=== PATIENT | female | born 1960 | race Caucasian/White ===

== ENCOUNTER 2016-08-01 13:47 | Inpatient (IN) | payer OTHER ==
[~2016-08-01] VITALS: Ht 157.5 cm; Wt 130.2 kg
[2016-08-01] MEDS ORDERED: LEVOFLOXACIN 500 MG/100 ML IV 100 ML IV ONE (14:05)
[2016-08-01] MEDS ORDERED: ALBUTEROL/IPRATROPIUM 3MG-0.5MG/3ML (DUONEB) NEB VIAL INH ONE (14:05)
[2016-08-01] MEDS ORDERED: methylPREDNISolone 125 MG (Solu-MEDROL) VIAL IV ONE (14:05)
[2016-08-01 14:20] LABS: BASOPHILS % (AUTO) 0 % (0-2); EOSINOPHILS % (AUTO) 0 % (0-4); LYMPHOCYTES # (AUTO) 0.6 X10^3; MEAN CORPUSCULAR HEMOGLOBIN 30.3 PG (26.0-34.0); MEAN CORPUSCULAR HGB CONC 34.4 g/dL (31.0-37.0); MEAN CORPUSCULAR VOLUME 88 FL (80-100); MONOCYTES # (AUTO) 0.7 X10^3; MONOCYTES % (AUTO) 7 % (3-11); NEUTROPHILS # (AUTO) 8.2 X10^3; NEUTROPHILS % (AUTO) 85 % (51-67); PLATELET COUNT 217 10^3uL (150-450); WHITE BLOOD COUNT 9.63 10^3uL (4.0-11.0)
[2016-08-01] MEDS ORDERED: SODIUM CHLORIDE FLUSH 10 ML SYR IV PRN (14:25)
[2016-08-01 14:34] LABS: ALBUMIN 4.5 g/dL (3.4-5.0); CALCULATED IONIZED CALCIUM 3.7 mg/dL (3.8-4.6); TOTAL PROTEIN 8.4 g/dL (6.4-8.5)
[2016-08-01] MEDS ORDERED: ALBUTEROL 0.5% NEB SOLUTION 2.5 MG/0.5 ML VIAL INH ONE (14:50)
[2016-08-01] MEDS ORDERED: SODIUM CHLORIDE 0.9% NEB SOLN 3 ML VIAL ONE (15:02)
[2016-08-01] MEDS: SODIUM CHLORIDE FLUSH 3 ML SYR IV PRN (15:14)
[2016-08-01] MEDS ORDERED: PROMETHAZINE/CODEINE SYRUP 6.25MG-10MG/5ML (PHENERGAN W/COD) UDC PO ONE (15:15)
[2016-08-01] MEDS ORDERED: KETOROLAC 30 MG/ML (TORADOL) 1 ML VIAL IV ONE (15:15)
--- NOTE | 2016-08-01 15:21 | NUR ---
DR RICHARD ACCEPTS PT FOR ADMIT TO MED SURG. CL
--- NOTE | 2016-08-01 15:44 | NUR ---
Patient admitted to room 318 from ER. Oxymask on at 3 liters. O2 sat.= 92%. Resp. rate around 30.
[2016-08-01] MEDS ORDERED: ONDANSETRON 2 MG/ML (Z0FRAN) 2 ML VIAL IV PRN (15:45)
[2016-08-01] MEDS ORDERED: IBUPROFEN 200 MG (MOTRIN) TAB PO PRN (15:45)
[2016-08-01] MEDS ORDERED: ALBUTEROL HFA (VENTOLIN HFA) COMMON CANNISTER IH PRN ×2 (15:45→20:35)
[2016-08-01] MEDS ORDERED: ALBUTEROL 0.083% NEB SOLUTION 2.5 MG/3 ML VIAL INH PRN (15:45)
[2016-08-01] MEDS ORDERED: ALBUTEROL/IPRATROPIUM 3MG-0.5MG/3ML (DUONEB) NEB VIAL INH PRN (15:45)
[2016-08-01] MEDS ORDERED: ACETAMINOPHEN 325 MG TAB (TYLENOL) PO PRN (15:45)
[2016-08-01 16:00] VITALS: BP 167/61
[2016-08-01 16:01] VITALS: BP 167/61
[2016-08-01] MEDS: LEVOFLOXACIN 750 MG/150 ML IV 150 ML IV SCH (16:40)
--- NOTE | 2016-08-01 16:41 | NUR ---
Audible wheezes noted. Patient intermittently grunts upon exhaling. Resp. rate= 28.
[2016-08-01] MEDS: OSELTAMIVIR (TAMIFLU) 75 MG CAP PO SCH ×2 (16:46→20:23)
--- NOTE | 2016-08-01 17:10 | NUR ---
Patient is sleeping. Resp. rate= 24. She continues to grunt when exhaling even while sleeping. Uses abdominal muscles to take every breath. O2 remains at 3 liters oxymask.
--- NOTE | 2016-08-01 18:05 | NUR ---
Attempted patient on room air and found O2 sat. to be 86%. Applied 2 liters and sat. returned to 89%. Turned O2 up to 3 liters NC and sat. was 90-91%. Resp. rate is around 22.
--- NOTE | 2016-08-01 19:21 | NUR ---
Patient is able to speak sentences without as much shortness of breath as when she was admitted to the floor. Able to eat supper without difficulty.
[2016-08-01] MEDS ORDERED: IPRATROPIUM INH SCH (21:00)
[2016-08-01] MEDS ORDERED: ALBUTEROL INH SCH (21:00)
[2016-08-01] MEDS: ALBUTEROL/IPRATROPIUM 3MG-0.5MG/3ML (DUONEB) NEB VIAL INH SCH (21:08)
--- NOTE | 2016-08-01 21:11 | NUR ---
Pt found lying in bed on 3 l/min NC, SPO2 90%, HR 117 BS coarse rhonchi with scattered wheezes throughout all lung davis before Duoneb via SVN. BS unchanged post Tx. IS not instructed due to Pt being tired. Pt has a harsh loose NPC.
[2016-08-01] MEDS: guaiFENesin SYRUP 200 MG/10 ML (ROBITUSSIN) UDC PO PRN (21:13)
[2016-08-02 00:36] VITALS: BP 123/59
[2016-08-02] MEDS: ALBUTEROL/IPRATROPIUM 3MG-0.5MG/3ML (DUONEB) NEB VIAL INH SCH ×4 (02:43→20:09)
--- NOTE | 2016-08-02 02:45 | NUR ---
Pt found sleeping in bed on 3 l/min NC. SPO2 92%, HR 69, RR 14 and non labored, BS slightly coarse with a persistent loose NPC before and after Duoneb via SVN.
[2016-08-02] MEDS: guaiFENesin SYRUP 200 MG/10 ML (ROBITUSSIN) UDC PO PRN (02:49)
[2016-08-02] MEDS: OSELTAMIVIR (TAMIFLU) 75 MG CAP PO SCH ×2 (05:20→20:06)
[2016-08-02 06:15] LABS: ALBUMIN 3.7 g/dL (3.4-5.0); ANION GAP 12.2 MEQ/L (3-15); CALCULATED IONIZED CALCIUM 3.8 mg/dL (3.8-4.6); TOTAL PROTEIN 7.2 g/dL (6.4-8.5)
[2016-08-02 06:18] LABS: BASOPHILS % (AUTO) 0 % (0-2); EOSINOPHILS % (AUTO) 0 % (0-4); LYMPHOCYTES # (AUTO) 0.9 X10^3; MEAN CORPUSCULAR HEMOGLOBIN 30.5 PG (26.0-34.0); MEAN CORPUSCULAR HGB CONC 33.9 g/dL (31.0-37.0); MEAN CORPUSCULAR VOLUME 90 FL (80-100); MEAN PLATELET VOLUME 12.2 FL (6.0-9.5); MONOCYTES # (AUTO) 0.6 X10^3; MONOCYTES % (AUTO) 7 % (3-11); NEUTROPHILS # (AUTO) 7.3 X10^3; NEUTROPHILS % (AUTO) 82 % (51-67); PLATELET COUNT 194 10^3uL (150-450); WHITE BLOOD COUNT 8.89 10^3uL (4.0-11.0)
--- NOTE | 2016-08-02 06:26 | NUR ---
Patient rests in bed throughout night with minimal needs. Guaifenesin syrup given x2, patient states it helps "a little". Is able to sleep off and on throughout night. No needs at this time.
[2016-08-02 08:00] VITALS: BP 118/62
--- NOTE | 2016-08-02 08:32 | NUR ---
O2 sat. has been 94%on 3 liters NC. Turned O2 down to 2 liters. Will recheck sat. Respirations are less labored than yesterday and the rate is 20.
--- NOTE | 2016-08-02 09:05 | NUR ---
O2 sat.= 91% on 2 liters. Will continue to monitor.
[2016-08-02] MEDS: predniSONE 20 MG (DELTASONE) TABLET PO SCH (10:12)
--- NOTE | 2016-08-02 12:06 | NUR ---
Medication reconcilation completed using prescription history as source
--- NOTE | 2016-08-02 12:45 | NUR ---
Turned O2 down to 1 liter. Will continue to monitor.
--- NOTE | 2016-08-02 13:25 | NUR ---
O2 sat.= 92% on 1 liter NC.
--- NOTE | 2016-08-02 15:48 | NUR ---
O2 sat.= 93% on 1 liter NC.
[2016-08-02 16:00] VITALS: BP 148/70
[2016-08-02] MEDS: LEVOFLOXACIN 750 MG/150 ML IV 150 ML IV SCH (16:09)
[2016-08-02] MEDS: SODIUM CHLORIDE FLUSH 3 ML SYR IV PRN (16:09)
--- NOTE | 2016-08-02 16:56 | NUR ---
Periods of tight NPC, O2 @1L nc, 92%. Wheezing improved from yesterday.
--- NOTE | 2016-08-02 19:38 | NUR ---
Patient's cough has decreased throughout the day. Her respiratory effort has also decreased. Her O2 remains at 1 liter.
--- NOTE | 2016-08-02 20:12 | NUR ---
Pt found sitting on the side of her bed, SPO2 95% on 1 l/min NC, HR 93, RR 16 and non labored. She is speaking in full sentences and is much improved from yesterday. BS clear and diminished throughout all lung davis before and after Duoneb via SVN.
[2016-08-03 00:09] VITALS: BP 130/70
[2016-08-03] MEDS: ALBUTEROL/IPRATROPIUM 3MG-0.5MG/3ML (DUONEB) NEB VIAL INH SCH ×2 (02:32→09:07)
--- NOTE | 2016-08-03 02:34 | NUR ---
Pt found lying in bed on 1 l/min NC, SPO2 95%, HR 73, RR 16 and non labored. Pt c/o dry NPC. BS have a fine wheeze in URL, clear all other lobes before Duoneb via SVN, wheezes remain post Tx. )2 titrated to RA.
[2016-08-03 06:04] LABS: BASOPHILS % (AUTO) 0 % (0-2); EOSINOPHILS % (AUTO) 0 % (0-4); MEAN CORPUSCULAR HEMOGLOBIN 30.5 PG (26.0-34.0); MEAN CORPUSCULAR HGB CONC 33.4 g/dL (31.0-37.0); MEAN CORPUSCULAR VOLUME 91 FL (80-100); MEAN PLATELET VOLUME 11.9 FL (6.0-9.5); MONOCYTES # (AUTO) 0.8 X10^3; MONOCYTES % (AUTO) 10 % (3-11); NEUTROPHILS # (AUTO) 4.4 X10^3; NEUTROPHILS % (AUTO) 53 % (51-67); PLATELET COUNT 199 10^3uL (150-450); WHITE BLOOD COUNT 8.33 10^3uL (4.0-11.0)
[2016-08-03 06:16] LABS: ALBUMIN 3.5 g/dL (3.4-5.0); CALCULATED IONIZED CALCIUM 3.9 mg/dL (3.8-4.6); MAGNESIUM* 2.1 mg/dL (1.6-2.3); TOTAL PROTEIN 6.8 g/dL (6.4-8.5)
--- NOTE | 2016-08-03 06:36 | NUR ---
Patient remains on RA, SaO2 94%. States that she has not slept very much this shift but is feeling a little better. No needs at this time.
[2016-08-03 07:36] VITALS: BP 135/68
[2016-08-03] MEDS: OSELTAMIVIR (TAMIFLU) 75 MG CAP PO SCH (08:03)
[2016-08-03] MEDS: predniSONE 20 MG (DELTASONE) TABLET PO SCH (08:03)
--- NOTE | 2016-08-03 10:58 | NUR ---
Discharge order received. IV discontinued with catheter intact. No redness or swelling noted at insertion site. Instructions provided with verbal and written understanding expressed.
--- NOTE | 2016-08-03 12:04 | NUR ---
Patient dismissed via wheelchair to private car. No further needs.
[2016-08-03] MEDS ORDERED: LEVOFLOXACIN 750 MG TAB (LEVAQUIN) PO SCH (17:00)
== END 2016-08-03 12:00 | disposition home or self-care (01) | DRG 871 ==
LOC: EDUNIT# 13:47 → ED 13:48 → MED/SURG 15:31
PROVIDERS: ADMIT Internal Medicine; ATTEND Internal Medicine
DX: A41.89 Other specified sepsis (principal); J96.01 Acute respiratory failure with hypoxia; J44.1 Chronic obstructive pulmonary disease with (acute) exacerbation; J10.1 Influenza due to other identified influenza virus with other respiratory manifestations; F17.210 Nicotine dependence, cigarettes, uncomplicated
CPT/HCPCS: 36415; 71020; 80053; 83605; 83735; 85025; 86140; 87040; 87486; 87581; 87633; 87798; 93005; 93010; 94640; 96365; 96375; 99284; 99285

== ENCOUNTER → 2016-10-13 | Outpatient (CLI) | payer OTHER ==
[~2016-10-13] MED LIST: AC325T PO; ALBU8.5H2 IH; AZTH250C PO; CEFD300C PO; DEXT15SY PO; DEXT7.5S PO; DOXY-182 PO; FLUT1DIS IH; GBPN300C PO; GFN600TCR PO; GUAI120016 PO; HYDR-3702 PO; IBP200T PO; IPRA4AER INH; NYQUILL PO; OSLT75C PO; PRD20T PO; PRED20TA PO; SPACER; TAMS-8 PO; TIOT4MIS2 IH
== END ==
LOC: RT 12:45
PROVIDERS: ATTEND Surgery
DX: Z02.71 Encounter for disability determination (principal)
CPT/HCPCS: 94060